=== PATIENT | female | born 1970 | race Caucasian/White ===

== ENCOUNTER → 2016-08-14 | Outpatient (CLI) | payer BC ==
--- NOTE | 2016-08-14 14:57 | US ---
ULTRASOUND EXAMINATION OF the left and right lower extremities WITH DOPPLER HISTORY: Polyneuropathy FINDINGS: Examination of the left and right legs were performed from the groin to the calf region. All visual ized segments including common femoral, proximal greater saphenous, superficial femoral, popliteal a nd calf veins appear patent with good compressibility and augmentation. There is no evidence of marisela p vein thrombosis. IMPRESSION: No evidence of a DVT.
== END ==
LOC: MW.CHRC 13:02
PROVIDERS: ATTEND Family Medicine
DX: G62.9 Polyneuropathy, unspecified (principal)
CPT/HCPCS: 36415; 80053; 93970; 93970-26